=== PATIENT | male | born 2000 | race Caucasian/White ===

== ENCOUNTER 2018-02-06 07:45 | Emergency (ER) | payer OTHER ==
--- NOTE | 2018-02-06 07:49 | PDOC ---
History of Present Illness - General Chief Complaint: Vomiting Blood Stated Complaint: VOMITING BLOOD Time Seen by Provider: 02/06/18 07:47 History Source: Patient (Patient walked in complaining of new onset of vomiting blood and abdominal pain, symptoms occuring early in the morning. Denies any black stools, Denies using NSAID, occasional beer with moderation. stressed in school and personal life, his best friend over the summer in a motorcycle accident.) Exam Limitations: No Limitations - History of Present Illness Travel History: No Quality: reports: moderate Abdominal Pain Onset Location: reports: epigastric Pain Radiation: reports: no radiation Activities at Onset: reports: none Treatment Prior to Arrive: worse with: analgesics, antacids, cold pack, heat, laxative, enema, other Past History - Travel Traveled outside of the country in the last 30 days: No Close contact w/someone who was outside of country & ill: No - Past Medical History Allergies/Adverse Reactions: Allergies Allergy/AdvReac Type Severity Reaction Status Date / Time No Known Allergies Allergy Unverified 02/06/18 07:46 Home Medications: Ambulatory Orders Fluoxetine HCl [Prozac] 10 mg PO DAILY 02/06/18 Ondansetron HCl [Zofran] 4 mg PO ASDIR 02/06/18 Ondansetron HCl [Zofran] 4 mg PO TID #20 tablet 02/06/18 Ranitidine [Zantac -] 150 mg PO DAILY #20 tablet 02/06/18 GI Disorders: Yes (previously GI symptoms had colonoscopy, upper endoscopy ) Psychiatric Problems: Yes (anxiety, depression) Abd/GI Specific PMHX - Complaint Specific PMHX Colitis: No Diverticulitis: No Gall Bladder Disease: No GERD: No Hepatitis: No Irritable Bowel Synd (IBS): No Pancreatitis: No GI Ulcer Disease: No Review of Systems - Review of Systems Able to Perform ROS?: Yes Is the patient limited Luxembourgish proficient: Yes Constitutional: Yes: Symptoms Reported, Malaise HEENTM: No: Symptoms Reported, See HPI, Eye Pain, Blurred Vision, Tearing, Recent change in vision, Double Vision, Cataracts, Ear Pain, Ocular Prothesis, Ear Discharge, Nose Pain, Nose Congestion, Tinnitus, Nose Bleeding, Hearing Loss , Throat Pain, Throat Swelling, Mouth Pain, Dental Problems, Difficulty Swallowing, Mouth Swelling, Other Respiratory: No: Symptoms reported, See HPI, Cough, Orthopnea, Shortness of Breath, SOB with Exertion, SOB at Rest, Stridor, Wheezing, Productive cough, Hemoptysis, Other Cardiac (ROS): No: Symptoms Reported, See HPI, Chest Pain, Edema, Irregular Heart Rate, Lightheadedness, Palpitations, Syncope, Chest Tightness, Other ABD/GI: Yes: See HPI, Nausea, Vomiting, Other (wretching, alleged bloody vomitus ) : No: Symptoms Reported, See HPI, Burning, Dysuria, Discharge, Frequency, Flank Pain, Hematuria, Incontinence, Pain, Urgency, Testicular Mass, Testicular Swelling, Lesions, Testicular Pain, Other Musculoskeletal: No: Symptoms Reported, See HPI, Back Pain, Gout, Joint Pain, Joint Swelling, Muscle Pain, Muscle Weakness, Neck Pain, Joint Stiffness, Other Neurological: No: Symptoms reported, See HPI, Headache, Numbness, Paresthesia, Pre-Existing Deficit, Seizure, Tingling, Tremors, Weakness, Unsteady Gait, Ataxia, Dizziness, Other Psychiatric: Yes: Anxiety, Depression All Other Systems: Reviewed and Negative *Physical Exam - Physical Exam General Appearance: Yes: Nourished, Appropriately Dressed, Moderate Distress ED Treatment Course - LABORATORY CBC & Chemistry Diagram: 02/06/18 11:37 02/06/18 08:22 *DC/Admit/Observation/Transfer Diagnosis at time of Disposition: Stress at home Gastritis Qualifiers: Gastritis type: unspecified gastritis Chronicity: acute Gastritis bleeding: with bleeding Qualified Code(s): K29.01 - Acute gastritis with bleeding - Discharge Dispostion Disposition: HOME Condition at time of disposition: Improved Decision to Admit order: No - Referrals - Patient Instructions Printed Discharge Instructions: DI for Gastritis, DI for Adjustment Disorder Additional Instructions: avoid any coffee, stimulants, alcohol Take medication as advised Call the Psychologist in school as we left message Discuss with family to family therapy related to recent stresful events. Call your Gastroentreologist If any symptoms may return any time in the ER - Post Discharge Activity
[2018-02-06 07:50] VITALS: BMI 26.6
[2018-02-06] MEDS ORDERED: ONDANSETRON 4 MG/2 ML VIAL IVPUSH ONE ×2 (08:18→08:54)
[2018-02-06] MEDS ORDERED: FAMOTIDINE 20 MG/50 ML IVPB 20 MG/50 ML MG IVPB ONE ×2 (08:19→08:23)
[2018-02-06] MEDS ORDERED: SODIUM CHLORIDE 1,000 ML IV STA ×2 (08:19→10:23)
[2018-02-06] MEDS ORDERED: ONDANSETRON 4 MG/2 ML VIAL ONE ×2 (08:23→08:53)
[2018-02-06 08:51] LABS: HEMOGLOBIN 16.1 GM/dl (11.7-16.9); MCHC 32.8 g/dl (32.0-35.9); MEAN CELL VOLUME 97.4 fl (80-96); MEAN PLT VOLUME 9.9 fl (7.5-11.1); PLATELET COUNT 229 K/MM3 (134-434); RBC 5.03 M/mm3 (4.00-5.60); RDW 13.3 % (11.9-15.9); WHITE BLOOD COUNT 21.5 K/mm3 (4.0-10.8)
[2018-02-06] MEDS ORDERED: LORazepam 2 MG/ML SDV VIAL ONE (08:58)
[2018-02-06 09:13] LABS: ALBUMIN 5.1 g/dl (3.5-5.0); ALK PHOS 92 U/L (32-92); ANION GAP 13 MMOL/L (8-16); BILIRUBIN,TOTAL 0.6 mg/dl (0.2-1.0); BLOOD UREA NITROGEN 11 mg/dl (7-18); CALCIUM 9.8 mg/dl (8.4-10.2); CHLORIDE 101 mmol/L (98-107); CO2 23 mmol/L (22-28); CREATININE 0.8 mg/dl (0.6-1.3); GLUCOSE,RANDOM 124 mg/dl (74-106); POTASSIUM 3.8 mmol/L (3.5-5.1); SGOT/AST 29 U/L (10-42); SGPT/ALT 26 U/L (10-40); SODIUM 137 mmol/L (136-145); TOT PROT 8.1 g/dl (6.4-8.3)
[2018-02-06 09:14] LABS: INR 1.03 (0.82-1.09); PROTHROMBIN TIME (PATIENT) 11.5 SEC (10.2-13.0)
[2018-02-06 11:37] LABS: PLATELET ESTIMATE ADEQUATE
[2018-02-06 12:00] LABS: HEMOGLOBIN 14.1 GM/dl (11.7-16.9); MCH 32.3 pg (25.7-33.7); MCHC 33.7 g/dl (32.0-35.9); MEAN PLT VOLUME 9.3 fl (7.5-11.1); PLATELET COUNT 176 K/MM3 (134-434); RBC 4.38 M/mm3 (4.00-5.60); RDW 12.8 % (11.9-15.9); WHITE BLOOD COUNT 15.3 K/mm3 (4.0-10.8)
[2018-02-06 13:17] LABS: PLATELET ESTIMATE ADEQUATE
[2018-02-06 14:31] VITALS: BP 98/57; PULSE 84; TEMP 98.5
== END 2018-02-06 16:35 | disposition home or self-care (01) ==
LOC: FER 07:45
PROC: 3E033GC Introduction of Other Therapeutic Substance into Peripheral Vein, Percutaneous Approach (ICD-10-PCS; principal; 2018-02-06)
PROC: 3E033NZ Introduction of Analgesics, Hypnotics, Sedatives into Peripheral Vein, Percutaneous Approach (ICD-10-PCS; 2018-02-06)
PROC: 3E0337Z Introduction of Electrolytic and Water Balance Substance into Peripheral Vein, Percutaneous Approach (ICD-10-PCS; 2018-02-06)
DX: F43.8 Other reactions to severe stress (principal); K29.01 Acute gastritis with bleeding
CPT/HCPCS: 36415; 80053; 82272; 85025; 85610; 99283-25; J7030

== ENCOUNTER 2019-04-25 17:48 | Emergency (ER) | payer OTHER ==
[2019-04-25] MEDS ORDERED: ACETAMINOPHEN 1000 MG/100 ML VIAL (NON FORMULARY) IVPB ONE (17:53)
[2019-04-25] MEDS ORDERED: SODIUM CHLORIDE 0.9% 500 ML INFUS.BAG IV ONE (17:53)
[2019-04-25] MEDS ORDERED: FAMOTIDINE 20 MG/50 ML IVPB 20 MG/50 ML MG IVPB ONE ×2 (17:53→18:05)
[2019-04-25] MEDS ORDERED: ONDANSETRON 4 MG/2 ML VIAL IVPUSH ONE (17:53)
--- NOTE | 2019-04-25 17:53 | PDOC ---
History of Present Illness - General Chief Complaint: Nausea/Vomiting Stated Complaint: NAUSEA, VOMITING, ABD PAIN - History of Present Illness Initial Comments: The pt is a 19M w/ a history of hiatal hernia and THC use who presents for evaluation of several hours of vomiting. The pt reports vomiting since 1400 today but then started to notice streaks of blood in his vomit at around 1600. He has not tried taking anything for his symptoms. He denies fevers/chills, blood in his stool, trouble breathing, dysuria, hematuria. Meds: Denies Allergies: Denies SH: Endorses tobacco use (vape); social EtOH; almost daily THC use 04/25/19 18:03 Past History - Past Medical History Allergies/Adverse Reactions: Allergies Allergy/AdvReac Type Severity Reaction Status Date / Time No Known Allergies Allergy Verified 04/25/19 17:49 Home Medications: Ambulatory Orders NK [No Known Home Medication] 04/25/19 COPD: No GI Disorders: Yes (previously GI symptoms had colonoscopy, upper endoscopy ) Psychiatric Problems: Yes (anxiety, depression) - Psycho Social/Smoking Cessation Hx Smoking History: Current every day smoker Number of Cigarettes Smoked Daily: 20 Hx Alcohol Use: Yes (OCASIONAL) Drug/Substance Use Hx: No Review of Systems - Review of Systems Able to Perform ROS?: Yes Comments:: GENERAL/CONSTITUTIONAL: No fever or chills. No weakness HEAD, EYES, EARS, NOSE AND THROAT: No change in vision. No change in hearing. No sore throat CARDIOVASCULAR: No chest pain or shortness of breath RESPIRATORY: Denies cough, hemoptysis GASTROINTESTINAL: per HPI GENITOURINARY: No dysuria, frequency, or change in urination MUSCULOSKELETAL: No joint or muscle swelling or pain. No neck or back pain SKIN: No rash NEUROLOGIC: No headache, vertigo, loss of consciousness, or change in strength/ sensation ENDOCRINE: No increased thirst. No abnormal weight change HEMATOLOGIC/LYMPHATIC: No anemia, easy bleeding, or history of blood clots ALLERGIC/IMMUNOLOGIC: No hives or skin allergy 04/25/19 18:06 Is the patient limited Chinese proficient: No *Physical Exam - Physical Exam GENERAL: Awake, alert, and oriented to person/place/time, in no acute distress HEAD: No signs of trauma, normocephalic, atraumatic EYES: PERRLA, EOMI, sclera anicteric, conjunctiva clear ENT: Hearing grossly normal, nares patent, oropharynx clear without exudates. Moist mucosa LUNGS: No distress, speaks in full sentences, clear to auscultation bilaterally HEART: Regular rate and rhythm, normal S1 and S2, no murmurs appreciated, peripheral pulses normal and equal bilaterally ABDOMEN: Soft, epigastric TTP w/o rebound or guarding, normoactive bowel sounds EXTREMITIES: Normal inspection, Normal range of motion, no edema. No clubbing or cyanosis NEUROLOGICAL: Cranial nerves II through XII grossly intact. Normal speech, normal gait, no focal sensorimotor deficits SKIN: Warm, Dry 04/25/19 18:06 ED Treatment Course - LABORATORY CBC & Chemistry Diagram: 04/25/19 18:05 04/25/19 18:02 Medical Decision Making - Medical Decision Making The pt is a 19M w/ a history of hiatal hernia and THC use who presents for evaluation of several hours of vomiting now with hematemesis Ddx: nancie-loaiza vs cyclical vomiting syndrome vs GERD ED Course Pt w/ emesis room, no blood noted in emesis CMP, CBC, Lipase CXR IVF, Zofran, Ofirmev 04/25/19 18:07 Pt given Benadryl and Prochlorperazine Lytes unremarkable No LOULOU LFTs wnl Dispo pending remaining results and reassessment Pt signed out to night team 04/25/19 18:56 Discharge - Discharge Information Problems reviewed: Yes Clinical Impression/Diagnosis: Nausea and vomiting Qualifiers: Vomiting type: unspecified Vomiting Intractability: non-intractable Qualified Code(s): R11.2 - Nausea with vomiting, unspecified Condition: Stable - Admission No - Follow up/Referral - Patient Discharge Instructions Patient Printed Discharge Instructions: DI for Vomiting -- Adult - Post Discharge Activity
[2019-04-25] MEDS ORDERED: ACETAMINOPHEN INJECTION 100 ML IVPB ONE (18:04)
[2019-04-25] MEDS ORDERED: ONDANSETRON 4 MG/2 ML VIAL ONE (18:05)
[2019-04-25 18:10] VITALS: BP 153/90; PULSE 98; TEMP 97.8; BMI 24.3
[2019-04-25] MEDS ORDERED: PROCHLORPERAZINE INJECTION 10 MG/2 ML VIAL IVPB ONE (18:21)
[2019-04-25 18:30] LABS: ALBUMIN 5.3 g/dl (3.4-5.0); BILIRUBIN,TOTAL 0.9 mg/dl (0.2-1); CALCIUM 9.7 mg/dl (8.5-10); CREATININE 0.9 mg/dl (0.55-1.3); POTASSIUM 3.6 mmol/L (3.5-5.1); TOT PROT 8.1 g/dl (6.4-8.2)
--- NOTE | 2019-04-25 18:58 | PDOC ---
Attending Attestation - Resident Resident Name: Ulysses Cannon - ED Attending Attestation I have performed the following: I have examined & evaluated the patient, The case was reviewed & discussed with the resident, I agree w/resident's findings & plan - HPI HPI: 04/25/19 18:53 19-year-old man with a history of multiple episodes of cyclical vomiting syndrome/hyperemesis since age 14. Patient also has a history of hiatal hernia. He has many emergency department visits for similar symptoms with cyclical vomiting. Today he presents with recurrent hyperemesis today, initially just gastric contents but then some streaks of blood. He complains of persistent nausea and retching. He denies fever or chills. He states he does have a prior history of pancreatitis. He was drinking some beer last night. He smokes marijuana every day on a long-term basis. He complains of epigastric abdominal pain, no fever, no diarrhea. - Physicial Exam PE: 04/25/19 18:54 Vital Signs (72 hours) 04/25/19 17:48 Temperature 97.8 F Pulse Rate 98 H Respiratory 18 Rate Blood Pressure 153/90 O2 Sat by Pulse 100 Oximetry (%) Patient is awake, alert, and oriented. He appears mildly pale. Oropharynx is clear. Neck is normal. Lungs are clear bilaterally. Heart is regular rhythm without gallop or murmur. Abdomen is soft, with mid epigastric tenderness. No guarding or rebound. Patient is frequently retching. Extremities are warm and well perfused. There is no edema. - Medical Decision Making 04/25/19 18:55 19-year-old man with a history of recurrent cyclical vomiting/hyperemesis and heavy cannabis use. Patient is receiving IV fluids and antiemetic medications. We initially gave IV fluids and Zofran, followed by IV diphenhydramine and prochlorperazine. Patient's nausea is finally coming under control. Lab work-up ordered. IV fluids continue. IV acetaminophen given for pain. Patient endorsed to Dr. Esteves with labs and chest x-ray pending.
[2019-04-25 19:07] LABS: BASO % 0.9 % (0-2.0); EOS % 0.3 % (0-4.5); HEMATOCRIT 46.5 % (35.4-49); HEMOGLOBIN 15.6 GM/dL (11.7-16.9); LYMPH % 21.1 % (8-40); MCH 32.1 pg (25.7-33.7); MCHC 33.5 g/dl (32.0-35.9); MEAN CELL VOLUME 95.6 fl (80-96); MEAN PLT VOLUME 9.2 fl (7.5-11.1); MONO % 8.9 % (3.8-10.2); NEUT % 68.8 % (42.8-82.8); PLATELET COUNT 293 K/MM3 (134-434); RBC 4.87 M/mm3 (4.00-5.60); RDW 13.4 % (11.9-15.9); WHITE BLOOD COUNT 19.2 K/mm3 (4.0-10.0)
--- NOTE | 2019-04-25 19:28 | PDOC ---
*Physical Exam - Vital Signs Last Vital Signs Temp Pulse Resp BP Pulse Ox 97.8 F 98 H 18 153/90 100 04/25/19 17:48 04/25/19 17:48 04/25/19 17:48 04/25/19 17:48 04/25/19 17:48 ED Treatment Course - LABORATORY CBC & Chemistry Diagram: 04/25/19 18:05 04/25/19 18:02 - ADDITIONAL ORDERS Additional order review: Laboratory Results 04/25/19 04/25/19 18:05 18:02 Sodium 139 Potassium 3.6 Chloride 102 Carbon Dioxide 22 Anion Gap 15 BUN 10.0 Creatinine 0.9 Est GFR (CKD-EPI)AfAm 141.01 Est GFR (CKD-EPI)NonAf 121.66 Random Glucose 129 H Calcium 9.7 Total Bilirubin 0.9 AST 36 ALT 35 Alkaline Phosphatase 75 Total Protein 8.1 Albumin 5.3 H Lipase 129 04/25/19 18:05 RBC 4.87 MCV 95.6 MCHC 33.5 RDW 13.4 Neutrophils % 68.8 Lymphocytes % 21.1 Monocytes % 8.9 Eosinophils % 0.3 Basophils % 0.9 - Medications Given in the ED: ED Medications Discontinued Medications Generic Name Dose Route Start Last Admin Trade Name Brigidoq PRN Reason Stop Dose Admin Acetaminophen 1,000 mg 04/25/19 17:53 04/25/19 18:30 Ofirmev Injection - IVPB 04/25/19 17:54 1,000 mg ONCE ONE Administration Diphenhydramine HCl 25 mg 04/25/19 18:21 04/25/19 18:25 Benadryl Injection - IVPB 04/25/19 18:22 25 mg ONCE ONE Administration Famotidine/Sodium Chloride 20 mg in 50 mls @ 100 mls/hr 04/25/19 17:53 18:14 Pepcid 20 Mg Premixed Ivpb - IVPB 04/25/19 18:22 100 mls/hr ONCE ONE Administration Ondansetron HCl 4 mg 04/25/19 17:53 04/25/19 18:10 Zofran Injection IVPUSH 04/25/19 17:54 4 mg ONCE ONE Administration Prochlorperazine Edisylate 10 mg 04/25/19 18:21 04/25/19 18:38 Compazine Injection - IVPB 04/25/19 18:22 10 mg ONCE ONE Administration Sodium Chloride 1,000 ml 04/25/19 17:53 04/25/19 18:00 Normal Saline - IV 04/25/19 17:54 1,000 ml ONCE ONE Administration ED Progress Note - Progress Note Progress Note: 04/25/19 19:55 Care of this patient was transferred to me from Dr. Cary at 1900 hrs. Patient is a 19-year-old male with cannabinoid hyperemesis syndrome. Patient is being hydrated is given antiemetics and is starting to feel better however his white count is 19.2. Patient otherwise was able to tolerate a small amount of p.o. fluids. CAT scan was ordered to rule out any other underlying acute pathology given the 19.2 white count. 04/25/19 21:27 CAT scan showed no acute pathology Patient is feeling better no further vomiting able to tolerate p.o.'s well discharged home Discharge - Discharge Information Problems reviewed: Yes Clinical Impression/Diagnosis: Cannabis hyperemesis syndrome concurrent with and due to cannabis abuse Condition: Stable Disposition: HOME - Admission No - Follow up/Referral - Patient Discharge Instructions Patient Printed Discharge Instructions: DI for Vomiting -- Adult Additional Instructions: It is important that you stop using cannabis as this will continue to recur as long as you use cannabis. Return to the emergency department immediately with ANY new, persistent or worsening symptoms. Continue any medications as previously prescribed by your physician. You should follow up with your primary doctor as soon as possible regarding today's emergency department visit. . Please make sure your doctor reviews the results of your emergency evaluation. Thank you for coming to the Emergency Department today for your care. It was a pleasure to see you today. Please note that your evaluation is INCOMPLETE until you follow-up with your doctor. - Post Discharge Activity
[2019-04-25] MEDS ORDERED: SODIUM CHLORIDE 1,000 ML IV ONE (19:54)
[2019-04-25 20:19] LABS: PLATELET ESTIMATE ADEQUATE
[2019-04-25] MEDS ORDERED: KETOROLAC TROMETHAMINE 15 MG/ML VIAL IVPUSH ONE (21:02)
[2019-04-25] MEDS ORDERED: KETOROLAC TROMETHAMINE 15 MG/ML VIAL ONE (21:04)
== END 2019-04-25 21:32 | disposition home or self-care (01) ==
LOC: FER 17:48
PROC: 3E033NZ Introduction of Analgesics, Hypnotics, Sedatives into Peripheral Vein, Percutaneous Approach (ICD-10-PCS; principal; 2019-04-25)
PROC: 3E033GC Introduction of Other Therapeutic Substance into Peripheral Vein, Percutaneous Approach (ICD-10-PCS; 2019-04-25)
PROC: 3E0333Z Introduction of Anti-inflammatory into Peripheral Vein, Percutaneous Approach (ICD-10-PCS; 2019-04-25)
DX: R11.2 Nausea with vomiting, unspecified (principal)
CPT/HCPCS: 36415; 71045-TC-FY; 74177-TC; 80053; 83690; 85025; 99285-25; J0131; J7030; Q9967